=== PATIENT | female | born 1995 | race Caucasian/White ===

== ENCOUNTER → 2019-08-13 11:37 | Outpatient (CLI) | payer MEDICAID, SELFPAY ==
[2019-08-13 14:29] LABS: HCG,Quantitative 53750 mIU/ml (0-5.42)
== END ==
PROVIDERS: Visit Provider Nurse Practitioner Obstetrics & Gynecology
DX: Z32.01 Encounter for pregnancy test, result positive (principal)
CPT/HCPCS: 36415; 84702

== ENCOUNTER → 2019-09-16 10:38 | Outpatient (CLI) | payer MEDICAID, SELFPAY ==
--- NOTE | 2019-09-16 10:39 | US_ITS ---
PROCEDURE: US OB >= 14 WEEKS FETUS CLINICAL INDICATION: for dates COMPARISON: No exams were available for comparison FINDINGS: There is a single live intrauterine gestation in cephalic presentation. Cervix is closed and measures 3 cm transabdominal. Nicholls-rump length is 9.46 cm correlating to gestational age of 15 weeks 3 days. BPD 15 weeks 0 days, OFD 14 weeks 6 days, HC 14 weeks 6 days, AC 15 weeks 0 days, FL 14 weeks 5 days. Heart rate is 142 BPM. Average ultrasound age is 15 weeks 0 days IMPRESSION: Live IUP at 15 weeks 0 days. Cephalic position. This does not constitute an anatomy exam the the Estimated due date by Ultrasound is 03/09/2020 Dictated by: Nito Garvin MD 09/16/2019 12:33 Electronically signed by Nito Garvin MD in [place] 09/16/2019 12:33
== END ==
PROVIDERS: PCP Internal Medicine Adolescent Medicine; Visit Provider Nurse Practitioner Obstetrics & Gynecology
DX: Z34.90 Encounter for supervision of normal pregnancy, unspecified, unspecified trimester (principal)
CPT/HCPCS: 76805

== ENCOUNTER → 2019-10-29 10:16 | Outpatient (CLI) | payer MEDICAID, SELFPAY ==
--- NOTE | 2019-10-29 10:16 | US_ITS ---
PROCEDURE: US OB /MATERNAL DETAIL CLINICAL INDICATION: 20 week ultrasound Anatomy exam COMPARISON: US US OB >= 14 WEEKS FETUS from 09/16/2019 FINDINGS: There is a single live fetus which is in breech presentation. heart and body motion noted. Average ultrasound age is 20 weeks 4 days. The cervix is closed measuring 3.6 cm transabdominal. The placenta is posterior and grade 1. Complete survey performed and was unremarkable on the submitted images as in PACS. No discrete anomalies identified on survey imaging by technologist. Active fetus. Three-vessel cord with satisfactory umbilical cord insertion. 4- chamber heart noted. Survey of brain & ventricles Unremarkable. Face and neck survey unremarkable. Diaphragm and chest views unremarkable. Abdomen: Both kidneys noted and unremarkable. Stomach noted and satisfactory. Spine: Survey of the spine satisfactory with no anomalies identified nor imaged. Both arms and legs noted. Amniotic Fluid: Adequate. Maternal adnexa: No significant findings. Measurements: Average ultrasound age 20weeks 4days. Gestational Age 21weeks 1day Estimated due date by ultrasound age 0103/13/2020. Estimated weight 377g BPD = 20weeks 1day OFD = 21weeks 1day HC = 20weeks AC = 20weeks 6days FL = 21weeks 1day Growth Percentile= 27Percent% Heart Rate = 142bpm Cerebellum = 20weeks 5days Humerus = 21weeks 3days HC/AC is 1.12 CI is 0.73 FL/BPD is 0.75 FL/AC is 0.22 IMPRESSION: Live IUP 20 weeks 4 days which is in breech presentation. All parameters correlate with no obvious anomalies. Please see above for detail Dictated by: Nito Garvin MD 10/30/2019 06:38 Nito Garvin MD in [place] 10/30/2019 06:38
[2019-10-29 11:49] LABS: Basophils # 0.1 K/mm3 (0-0.2); Basophils % 0.3 % (0.1-2.0); Eosinophils # 0.1 K/mm3 (0.0-0.4); Eosinophils % 0.9 % (0.1-12.0); Hematocrit 36.3 % (37.0-47.0); Hemoglobin 12.6 g/dL (12.2-16.2); Lymphocytes # 4.2 K/mm3 (0.7-4.5); Mean Corpuscular HGB Conc 34.7 g/dL (31.8-35.4); Mean Corpuscular Hemoglobin 31.5 pg (27.0-31.2); Mean Corpuscular Volume 90.8 fl (81-99); Mean Platelet Volume 8.4 fl (7.4-10.4); Monocytes # 0.5 K/mm3 (0.1-1.0); Monocytes % 3.6 % (1.7-9.3); Neutrophils # 9.1 K/mm3 (1.8-7.8); Neutrophils % 65.2 % (37.0-80.0); Platelet Count 211 K/mm3 (142-424); Red Blood Count 3.99 M/mm3 (4.20-5.40); Red Cell Distribution Width 13.6 % (11.5-17.5); White Blood Count 13.9 K/mm3 (4.8-10.8)
[2019-10-30 13:03] LABS: HIV Screen 4th Generation wRfx Non Reactive (Non Reactive); Hepatitis B Surface Antigen Negative (Negative); Hepatitis C Antibody <0.1 s/co ratio (0.0-0.9); Rubella Antibodies, IgG 1.98 index (Immune >0.99)
[2019-11-14 09:47] LABS: Rapid Plasma Reagin Ab Titer Non Reactive
== END ==
PROVIDERS: PCP Internal Medicine Adolescent Medicine; Visit Provider Nurse Practitioner Obstetrics & Gynecology
DX: Z3A.20 20 weeks gestation of pregnancy (principal); Z34.90 Encounter for supervision of normal pregnancy, unspecified, unspecified trimester
CPT/HCPCS: 36415; 76811; 85025; 86592; 86703; 86762; 86850; 87340; 87380; G0432

== ENCOUNTER → 2019-10-29 11:25 | Outpatient (CLI) | payer MEDICAID, SELFPAY | PROVIDERS: Visit Provider Nurse Practitioner Obstetrics & Gynecology | DX: Z34.90 Encounter for supervision of normal pregnancy, unspecified, unspecified trimester (principal) | CPT/HCPCS: 36415; 85025; 86592; 86703; 86762; 86850; 87340; 87380; G0432 ==

== ENCOUNTER → 2019-12-05 07:58 | Outpatient (CLI) | payer MEDICAID, SELFPAY ==
[2019-12-05 08:45] LABS: Glucose,Fasting 126 mg/dl (74-100)
[2019-12-05 10:09] LABS: Glucose 1 Hour 225 mg/dL (74-100)
== END ==
PROVIDERS: Visit Provider Nurse Practitioner Obstetrics & Gynecology
DX: Z34.90 Encounter for supervision of normal pregnancy, unspecified, unspecified trimester (principal)
CPT/HCPCS: 36415; 82951

== ENCOUNTER → 2019-12-09 10:51 | Outpatient (CLI) | payer MEDICAID, SELFPAY ==
[2019-12-09 13:14] LABS: Glucose 1 Hour 166 mg/dL (74-100); Glucose,Fasting 108 mg/dl (74-100)
[2019-12-09 14:21] LABS: Glucose 2 Hour 127 mg/dL (74-100)
[2019-12-09 15:08] LABS: Glucose 3 Hour 114 mg/dL (74-100)
== END ==
PROVIDERS: Visit Provider Nurse Practitioner Obstetrics & Gynecology
DX: Z34.90 Encounter for supervision of normal pregnancy, unspecified, unspecified trimester (principal)
CPT/HCPCS: 36415; 82951

== ENCOUNTER → 2020-01-30 11:42 | Outpatient (CLI) | payer MEDICAID, SELFPAY ==
[2020-01-30 14:21] LABS: Coronavirus 19 IgG Antibody Negative (Negative); Coronavirus 19 IgM Antibody Negative (Negative)
== END ==
PROVIDERS: Visit Provider Nurse Practitioner Obstetrics & Gynecology
DX: Z03.818 Encounter for observation for suspected exposure to other biological agents ruled out (principal)
CPT/HCPCS: 36415; 86328

== ENCOUNTER → 2020-02-10 10:06 | Outpatient (CLI) | payer MEDICAID, SELFPAY ==
--- NOTE | 2020-02-10 10:07 | US_ITS ---
PROCEDURE: US OB BIOPHYSICAL PROFILE CLINICAL INDICATION: for position/ possible breech Large for gestational age TECHNIQUE: FINDINGS: The following parameters are obtained: Average ultrasound age is Average 35weeks 2days Estimated due date by ultrasound is 03/14/2020. Estimated weight is 2,633g. This is 40th percentile. The fetus is in breech presentation. Placenta is fundal and grade 2. BPD 34 weeks 6 days, OFD 37 weeks 5 days, HC 35 weeks 3 days, AC 35 weeks 2 days, FL 35 weeks 3 days. heart rate: 147bpm bpm. HC/AC: 1.01 Cephalic index: 0.77 FL/BPD: 0.8 FL/AC: 0.22 Amniotic fluid index: 10.6cm Qualitative AFV: 2 breathing movements: 2 Gross body movements: 2 Tone: 2 Biophysical profile score: 8 The cervix is closed and measures 3 cm IMPRESSION: Live IUP in breech presentation with an average ultrasound age of 35 weeks 2 days an estimated weight 2633 g which is 40th percentile. EMA of 10 cm. Please see above for detail. Dictated by: Nito Garvin MD 02/11/2020 12:54 Nito Garvin MD in [place] 02/11/2020 12:54
== END ==
PROVIDERS: PCP Internal Medicine Adolescent Medicine; Visit Provider Nurse Practitioner Obstetrics & Gynecology
DX: Z36.89 Encounter for other specified antenatal screening (principal)
CPT/HCPCS: 76811; 76819

== ENCOUNTER → 2020-02-18 17:04 | Outpatient (CLI) | payer MEDICAID, SELFPAY ==
[2020-02-18 17:17] LABS: Microscopic, Urine URINE MICROSCOPIC (MICROSCOPIC)
[2020-02-18 17:58] LABS: Appearance,Urine SL CLOUDY (Clear); Bilirubin,Urine Negative (Negative); Blood, Urine Negative (Negative); Color,Urine YELLOW (Yellow); Glucose,Urine (UA) Negative (Negative); Ketones,Urine Negative (Negative); Leukocyte Esterase,Urine Negative (Negative); Nitrate,Urine Negative (Negative); Protein,Urine Negative (Negative); Specific Gravity, Urine 1.025 (1.005-1.030); Urobilinogen,Urine 0.2 EU/dl (0.2)
[2020-02-18 18:21] LABS: Amorphous Sediment,Urine 1+ /lpf
== END ==
PROVIDERS: Visit Provider Nurse Practitioner Obstetrics & Gynecology
DX: Z34.90 Encounter for supervision of normal pregnancy, unspecified, unspecified trimester (principal)
CPT/HCPCS: 81001; 86403

== ENCOUNTER → 2020-02-25 17:32 | Outpatient (CLI) | payer MEDICAID, SELFPAY ==
[2020-02-25 17:34] LABS: Microscopic, Urine URINE MICROSCOPIC (MICROSCOPIC)
[2020-02-25 19:14] LABS: Appearance,Urine CLEAR (Clear); Bilirubin,Urine Negative (Negative); Blood, Urine Negative (Negative); Color,Urine YELLOW (Yellow); Glucose,Urine (UA) Negative (Negative); Ketones,Urine Negative (Negative); Leukocyte Esterase,Urine Negative (Negative); Nitrate,Urine Negative (Negative); PH,Urine 6.5 (5.0-8.5); Protein,Urine Negative (Negative); Urobilinogen,Urine 0.2 EU/dl (0.2)
[2020-02-25 20:10] LABS: Bacteria,Urine 1+ /lpf
== END ==
PROVIDERS: Visit Provider Nurse Practitioner Obstetrics & Gynecology
DX: Z34.90 Encounter for supervision of normal pregnancy, unspecified, unspecified trimester (principal)
CPT/HCPCS: 81001

== ENCOUNTER → 2020-03-07 09:57 | Outpatient (CLI) | payer MEDICAID, SELFPAY ==
[2020-03-07 10:24] LABS: Basophils # 0.1 K/mm3 (0-0.2); Basophils % 0.3 % (0.1-2.0); Eosinophils # 0.1 K/mm3 (0.0-0.4); Eosinophils % 0.8 % (0.1-12.0); Hematocrit 42.3 % (37.0-47.0); Hemoglobin 13.9 g/dL (12.2-16.2); Lymphocytes # 3.5 K/mm3 (0.7-4.5); Lymphocytes % 23.8 % (10-50); Mean Corpuscular HGB Conc 32.9 g/dL (31.8-35.4); Mean Corpuscular Hemoglobin 29.2 pg (27.0-31.2); Mean Corpuscular Volume 88.8 fl (81-99); Mean Platelet Volume 8.7 fl (7.4-10.4); Monocytes # 0.6 K/mm3 (0.1-1.0); Monocytes % 3.8 % (1.7-9.3); Neutrophils # 10.4 K/mm3 (1.8-7.8); Neutrophils % 71.2 % (37.0-80.0); Platelet Count 269 K/mm3 (142-424); Red Blood Count 4.77 M/mm3 (4.20-5.40); Red Cell Distribution Width 13.9 % (11.5-17.5); White Blood Count 14.6 K/mm3 (4.8-10.8)
[2020-03-07 10:27] LABS: Chloride 104 mmol/L (98-107); Potassium 3.8 mmoL/L (3.5-5.1); Sodium 134 mmol/L (136-145)
[2020-03-07 10:30] LABS: Anion Gap 11.8 mEq/L (5-15); Blood Urea Nitrogen 9 mg/dl (7-17); Calcium 9.5 mg/dl (8.4-10.2); Carbon Dioxide 22 mmol/L (22.0-30.0); Estimated Glomerular Filt Rate 123 ml/min (>60); GFR (African American) 149 ML/MIN (>60); Glucose 176 mg/dl (74-100)
[2020-03-07 10:44] LABS: Coronavirus 19 IgG Antibody Negative (Negative); Coronavirus 19 IgM Antibody Negative (Negative)
== END ==
PROVIDERS: Visit Provider Nurse Practitioner Obstetrics & Gynecology
DX: Z01.818 Encounter for other preprocedural examination (principal); Z03.818 Encounter for observation for suspected exposure to other biological agents ruled out
CPT/HCPCS: 36415; 80048; 85025; 86328

== ENCOUNTER 2020-03-09 05:09 | Inpatient (IN) | payer MEDICAID, SELFPAY ==
--- NOTE | 2020-03-03 13:44 | SUR.PREOP ---
contacted pt about labs on Sat 03/07 btwn 8-12 for COVID screening
[2020-03-09] VITALS (26 sets, daily range): BP systolic 102–168; BP diastolic 45–95; PULSE 69–109; RESP 12–28; TEMP 36.4–36.9; O2SAT 94–100; BMI 45.5
[2020-03-09 06:05] LABS: Basophils # 0.1 K/mm3 (0-0.2); Basophils % 0.3 % (0.1-2.0); Eosinophils # 0.1 K/mm3 (0.0-0.4); Eosinophils % 0.6 % (0.1-12.0); Hematocrit 43.6 % (37.0-47.0); Hemoglobin 14.4 g/dL (12.2-16.2); Lymphocytes # 4.8 K/mm3 (0.7-4.5); Lymphocytes % 23.2 % (10-50); Mean Corpuscular Hemoglobin 29.6 pg (27.0-31.2); Mean Corpuscular Volume 89.6 fl (81-99); Mean Platelet Volume 8.5 fl (7.4-10.4); Monocytes # 1.3 K/mm3 (0.1-1.0); Monocytes % 6.2 % (1.7-9.3); Neutrophils # 14.3 K/mm3 (1.8-7.8); Neutrophils % 69.6 % (37.0-80.0); Platelet Count 300 K/mm3 (142-424); Red Blood Count 4.87 M/mm3 (4.20-5.40)
[2020-03-09 06:06] LABS: White Blood Count 20.5 K/mm3 (4.8-10.8)
[2020-03-09 06:07] LABS: MANUAL DIFFERENTIAL MANUAL DIFFERENTIAL (MANUAL DIFF)
[2020-03-09 06:14] LABS: Chloride 106 mmol/L (98-107); Potassium 4.2 mmoL/L (3.5-5.1); Sodium 134 mmol/L (136-145)
[2020-03-09 06:17] LABS: Anion Gap 12.2 mEq/L (5-15); Blood Urea Nitrogen 11 mg/dl (7-17); Calcium 9.8 mg/dl (8.4-10.2); Carbon Dioxide 20 mmol/L (22.0-30.0); Creatinine Clearance Estimated 104 mL/min (50-200); Estimated Glomerular Filt Rate 123 ml/min (>60); GFR (African American) 149 ML/MIN (>60); Glucose 118 mg/dl (74-100); Lymphocytes % 18 % (10-50); Neutrophils % 79 % (42-76); Platelet Estimate Normal; RBC Morphology Normal; Total Cells Counted 100
--- NOTE | 2020-03-09 06:59 | P.PN_ITS ---
[facility] Anesthesia Checklist - Patient Identification Patient Identification: Arm Band - Structural Data Admitted From: Home Planned Operative Procedure/s: Primary C/S Consent for Planned Operative Procedure(s) Verified: Yes Verified Documents: Surgical Consent, History and Physical - NPO Status Verified Time NPO: 00:00 - Additional verifications Anesthesia Reactions: No - Airway Assessment C-Spine Mobility Assessed: Yes (mp2) TMJ Mobility Assessed: Yes Dentition: Good Dentition - Neurological Assessment Level of Consciousness: Awake, Alert - Anesthesia Plan Anesthesia Risk discussed: Yes Anesthesia Plan: Verified ASA Class: II Anesthesia Type: Spinal [facility] History I have reviewed the patient's past medical history: Yes *Have you ever received a pneumonia vaccine?: No *Have you received a flu vaccine this season?: No Anesthesia experience/problems:: nac Laterality Cases: Bilateral: Tonsillectomy, Other Other Surgeries: Yes: Other. No: Amputation: No Fractures: No - *Social History Smoking Status: Current every day smoker Alcohol Intake: never Alcohol Intake Frequency:: other Substance Use Type: denies use *Occupational Status:: unemployed *Travel in the last 8 weeks: None Family Hx:: No significant family history Para: 3
--- NOTE | 2020-03-09 08:58 | HMH.OPNOTE ---
Date of procedure: 03/09/20 Pre-op Diagnosis:: Term , breech presentation Post-op Diagnosis:: Term , breech presentation Procedure performed:: Primary lower segment transverse section Surgeon:: Scott Maldonado MD Copy Operator(s):: Dr. Wheeler PRESCHOOL TEACHER:: Rodrigo Amadou Anesthesia: GETTaniya Estimated blood loss (mL): 1,000 Clinical Note:: She is a 24-year-old 4 para 3 at 39 weeks gestational age. She has been followed throughout the and in the last month it was noted that she was breech. An ultrasound this morning confirmed that she was breech. After having discussed the risks and benefits we elected to perform a primary lower segment transverse section. Operative findings:: She delivered a liveborn male child at 8:17 AM on the morning of March 09, 2020. The baby had Apgars of 7 at 1 minute and 9 at 5 minutes. Ovaries and tubes appeared normal. Operative note:: She was taken to the operating room where spinal anesthesia was found be inadequate. We attempted to spinal anesthesia twice with good backflow of clear spinal fluid but despite this she continued to feel everything and was able to move her legs . We then elected to perform general anesthesia. She was prepped and draped in normal sterile fashion in the supine position with a leftward tilt. A Hall catheter was in the bladder. A Pfannenstiel skin incision was made with knife then carried through to the underlying layer of fascia with knife. The fascia was opened in the midline with knife and extended laterally using Morris scissors. Long Eddy clamps were applied to the superior aspect of the fascial incision which was tented up and the underlying rectus muscles dissected off using Morris scissors. The Long Eddy clamps were then applied to the inferior aspect of the fascial incision which in a similar fashion was tented up and the underlying rectus muscles dissected off using Morris scissors. The rectus muscles were then in the midline, the peritoneum identified, and entered sharply with Metzenbaum scissors. This incision was then extended superiorly and inferiorly with Morris scissors. We had good visualization of the bladder inferiorly. The bladder peritoneum was then opened in the midline and extended laterally using Metzenbaum scissors. A bladder flap was created digitally. Transverse incision was made through the uterine muscle to the amnion. This incision was then extended laterally using fingers traction. The amnion was entered sharply with knife. There was clear amniotic fluid. The 's breech was then delivered atraumatically. This was followed by the after coming shoulders and head Atraumatically. The oropharynx and nasopharynx were bulb suctioned. The infant was then handed off to Dr. Marques who assigned Apgars of 7 at 1 minute and 9 at 5 minutes. We then obtained cord blood as well as cord pH. Using gentle traction on the cord and countertraction on the fundus I was able to easily deliver the placenta intact. It had a normal three-vessel cord. The uterus was then cleared of clots and debris . The uterus was exteriorized from the abdominal cavity. There was some bleeding on the left side that was clamped with Yasmine clamps. There was also some bleeding on the right side. I elected to perform [id number] sutures on both sides first. The uterine incision was then closed using running 0 Vicryl suture in a locked fashion. A second layer of the same suture was used to imbricate the first layer. The bladder peritoneum was then closed using running 2-0 Vicryl suture in a locked fashion. The gutters and cul-de-sac were then cleared of clots and debris . Once again hemostasis was assured. The uterus was still quite boggy at the end of the case so we elected to place a B. Westbrook suture. Using a #1 Vicryl suture I placed a suture anteriorly and then went over the fundus of the uterus. I placed 2 bites posteriorly and then came back ov
[2020-03-09 09:01] LABS: Appearance,Urine CLEAR (Clear); Bilirubin,Urine Negative (Negative); Blood, Urine Negative (Negative); Color,Urine YELLOW (Yellow); Glucose,Urine (UA) Negative (Negative); Ketones,Urine Negative (Negative); Leukocyte Esterase,Urine 2+ (Negative); Microscopic, Urine URINE MICROSCOPIC (MICROSCOPIC); Nitrate,Urine Negative (Negative); Protein,Urine Negative (Negative); Specific Gravity, Urine 1.025 (1.005-1.030); Urobilinogen,Urine 0.2 EU/dl (0.2)
[2020-03-09 09:08] LABS: Bacteria,Urine 1+ /lpf
--- NOTE | 2020-03-09 09:08 | P.PN_ITS ---
[facility] Anesthesia Record Part I Intake, IV Amount: 2,000 Estimated blood loss (mL): 1,000 Urine output (mL): 200 Blood Products used (#): none Blood Pressure: 160/93 SaO2: 98 Pulse Rate: 92 Respiratory Rate: 20 Temperature: 97.5 F Patient is:: Drowsy, Nasal O2, Stable Stable to PACU at:: 09:06
[2020-03-09 09:13] LABS: Barbiturates Screen,Urine Negative ng/ml (<200)
[2020-03-09 09:14] LABS: Benzodiazepines Screen,Urine Negative ng/ml (<200)
[2020-03-09 09:15] LABS: Cannabinoid Screen,Urine Negative ng/ml (<50); Cocaine Screen,Urine Negative ng/ml (<300)
[2020-03-09 09:16] LABS: Methadone Screen,Urine Negative ng/ml (<300)
[2020-03-09 09:17] LABS: Opiate Screen,Urine Negative ng/ml (<300); Phencyclidine Screen,Urine Negative ng/ml (<25)
[2020-03-09 09:20] LABS: Amphetamine/Metha Screen,Urine Negative ng/ml (<1000)
--- NOTE | 2020-03-09 13:50 | HMH.ANESII ---
[facility] Anesthesia Record Part II Discharge Time: 09:36 Destination: Obstetric Gynecology Dept PACU nurse assessment reviewed?: Yes Patient Condition:: Good Anesthesia Complications:: None Swallowing reflex intact?: Yes Cyanosis?: No Blood Pressure: 140/66 Pulse Rate: 77 Temperature: 97.9 F Mental Status: Alert & Oriented Pain level:: 5 Nausea and/or vomitting:: None Intake, IV Amount: 50
[2020-03-09 16:06] LABS: Hematocrit 33.5 % (37.0-47.0)
[2020-03-09 16:07] LABS: Hemoglobin 11.4 g/dL (12.2-16.2)
--- NOTE | 2020-03-09 17:34 | HMH.OBAPHP ---
OB - H&P: HPI Antepartum - History of Present Illness Chief complaint: Breech presentation History of present illness: She is a 24-year-old 4 para 3 at 39 weeks gestational age. She has had 3 previous vaginal deliveries but this time the baby is breech. It was confirmed at the time of ultrasound this morning. As result of that she is admitted for primary lower segment transverse section. - History of Present Criteria for establishing EDC:: LMP confirmed by 1st trimester US care: good care Ultrasounds: normal 1st trimester US, normal mid trimester US Obstetrical complications: none Medical complications: none - Labs Blood type: A (+) positive Rubella: immune RPR/VDRL: nonreactive GBS status: negative HBsAG: negative [facility] History I have reviewed the patient's past medical history: Yes *Have you ever received a pneumonia vaccine?: No *Have you received a flu vaccine this season?: No Anesthesia experience/problems:: nac Laterality Cases: Bilateral: Tonsillectomy, Other Other Surgeries: Yes: Other. No: Amputation: No Fractures: No - *Social History Smoking Status: Current every day smoker Alcohol Intake: never Alcohol Intake Frequency:: other Substance Use Type: denies use *Occupational Status:: unemployed *Travel in the last 8 weeks: None Family Hx:: No significant family history Para: 3 Review of Systems - Review of Systems Review of systems:: pertinent systems reviewed and negative unless documented below Meds Home Medications Medication Instructions Recorded Confirmed Type prenat.vits,rosalee,ksv-fuwd-diott 1 tab PO DAILY 10/07/19 03/09/20 History ondansetron 4 mg disintegrating 4 mg PO Q6H PRN #30 tab 10/29/19 03/09/20 Rx tablet Docosahexaenoic Acid [ DHA] 200 mg PO DAILY 03/09/20 03/09/20 History Ferrous Sulfate 325 mg PO DAILY 03/09/20 03/09/20 History Triamcinolone Acetonide [Kenalog 1 applic TOPICAL TIDP PRN 03/09/20 03/09/20 History 0.1% cream 80gm tube] Allergies Allergy/AdvReac Type Severity Reaction Status Date / Time penicillin G [PENICILLIN G] Allergy Unknown RASH/HIVES Verified 02/25/20 09:27 OB - H&P: Exam - Physical Exam Vital signs: Temp Pulse Resp BP Pulse Ox 98.0 F 92 H 16 106/47 L 98 03/09/20 16:15 03/09/20 16:15 03/09/20 16:15 03/09/20 16:15 03/09/20 16:15 - Constitutional no acute distress - Routine HEENT Exam Head: Present: normocephalic Eye: Present: EOMI, PERRL ENT: Present: mucous membranes moist - Routine Neck Exam Present: supple, full ROM - Routine Respiratory Exam Absent: accessory muscle use (good air entry bilaterally), respiratory distress, wheezes, crackles - Routine Cardiovascular Exam Present: RRR. Absent: murmur - Routine Abdominal Exam Present: soft, normoactive bowel sounds. Absent: tenderness, distended, guarding - Routine Rectal Exam Patient deferred: visual exam, digital exam - Routine Exam Patient deferred: external exam, groin exam, perineal exam - Routine Extremities Exam Present: full ROM. Absent: cyanosis, edema - Routine Skin Exam Present: intact. Absent: cyanosis - Routine Neurological Exam Present: alert, oriented X3 - Routine Psychiatric Exam Present: normal affect OB - Results - Labs Labs: Short CBC 03/09/20 03/09/20 Range/Units 05:50 15:53 WBC 20.5 H* D (4.8-10.8) K/mm3 Hgb 14.4 11.4 L D (12.2-16.2) g/dL Hct 43.6 33.5 L (37.0-47.0) % Plt Count 300 (142-424) K/mm3 BMP 03/09/20 05:50 Sodium 134 L Potassium 4.2 Chloride 106 Carbon Dioxide 20 L BUN 11 Creatinine 0.60 Glucose 118 H Calcium 9.8 Urine 03/09/20 Range/Units 05:35 Urine Color Yellow (Yellow) Urine Appearance Clear (Clear) Urine pH 6.0 (5.0-8.5) Ur Specific [place] 1.025 (1.005-1.030) Urine Protein Negative (Negative) Urine Glucose (UA) Negative (Negative) OB - A
[2020-03-10 04:00] VITALS: BP 114/56; PULSE 80; RESP 16; TEMP 36.8; O2SAT 97
[2020-03-10 07:51] LABS: Basophils % 0.1 % (0.1-2.0); Eosinophils % 0.3 % (0.1-12.0); Hematocrit 27.8 % (37.0-47.0); Lymphocytes # 2.2 K/mm3 (0.7-4.5); Mean Corpuscular Hemoglobin 30.9 pg (27.0-31.2); Mean Corpuscular Volume 90.7 fl (81-99); Mean Platelet Volume 8.1 fl (7.4-10.4); Monocytes # 0.8 K/mm3 (0.1-1.0); Monocytes % 5.4 % (1.7-9.3); Neutrophils # 11.5 K/mm3 (1.8-7.8); Neutrophils % 79.2 % (37.0-80.0); Platelet Count 218 K/mm3 (142-424); Red Blood Count 3.07 M/mm3 (4.20-5.40); Red Cell Distribution Width 14.1 % (11.5-17.5); White Blood Count 14.5 K/mm3 (4.8-10.8)
[2020-03-10 07:52] LABS: Hemoglobin 9.5 g/dL (12.2-16.2)
--- NOTE | 2020-03-10 08:19 | P.PN_ITS ---
Internal Medicine - PN: Subj *Date: 03/10/20 *Time: 08:19 Interval history: She is doing well this morning. She is 1 day post . Her pain is well controlled. Her incision is clean and dry. Her lochia is normal. Exam Vital signs and Labs for Last 24 Hours: Temp Pulse Resp BP Pulse Ox 98.2 F 80 16 114/56 L 97 03/10/20 04:00 03/10/20 04:00 03/10/20 04:00 03/10/20 04:00 03/10/20 04:00 Laboratory Results - last 24 hr 03/09/20 05:35: Urine Color Yellow, Urine Appearance Clear, Urine pH 6.0, Ur Specific [place] 1.025, Urine Protein Negative, Urine Glucose (UA) Negative, Urine Ketones Negative, Urine Blood Negative, Urine Nitrate Negative, Urine Bilirubin Negative, Urine Urobilinogen 0.2, Ur Leukocyte Esterase 2+ A, Urine WBC 10-20, Ur Squamous Epith Cells 3-5, Urine Bacteria 1+ 03/09/20 05:35: Urine Opiates Screen Negative, Urine Methadone Screen Negative, Ur Barbituates Screen Negative, Ur Phencyclidine Scrn Negative, Ur Amphetamines Screen Negative, U Benzodiazepines Scrn Negative, Urine Cocaine Screen Negative, U Marijuana (THC) Screen Negative 03/09/20 08:21: Cord ABG pH 7.30 L 03/09/20 15:53: Hgb 11.4 L D, Hct 33.5 L 03/10/20 07:03: WBC 14.5 H D, RBC 3.07 L D, Hgb 9.5 L D, Hct 27.8 L, MCV 90.7, MCH 30.9, MCHC 34.0, RDW 14.1, Plt Count 218 D, MPV 8.1, Neut % (Auto) 79.2, Lymph % (Auto) 15.0, [place] % (Auto) 5.4, Eos % (Auto) 0.3, Baso % (Auto) 0.1, Neut # (Auto) 11.5 H, Lymph # (Auto) 2.2, [place] # (Auto) 0.8, Eos # (Auto) 0.0, Baso # (Auto) 0.0 I & O for Last 24 hours: Intake & Output 12/26/03/08/20 03/09/20 03/10/20 11:59 11:59 11:59 11:59 Intake Total 1999 50 / 50 Output Total 200 / 200 Balance 1799 50 / 50 Weight 233 lb - Constitutional no acute distress - *Routine HEENT Exam Head: Present: normocephalic Eye: Present: EOMI, PERRL ENT: Present: mucous membranes moist Assessment and Plan (1) Breech presentation at Status: Acute Category: Medical Code(s): O32.1XX0 - Maternal care for breech presentation, not applicable or unspecified (2) Delivery by section of full-term infant Status: Acute Category: Medical Code(s): O82 - Encounter for delivery without indication - Assessment and plan all Dx Assessment and Plan for all problems:: She is doing well this morning. We will plan to send her home in 48 hours.
--- NOTE | 2020-03-10 12:58 | HMH.PHAVTE ---
[facility] Pharmacy VTE Monitoring - Patient Demographics Admission date: 03/09/20 Report Date: 03/10/20 Time: 12:58 Allergies/Adverse Reactions: Patient Allergies penicillin G [PENICILLIN G] Allergy (Unknown, Verified 02/25/20 09:27) RASH/HIVES Height: 1.52 m Weight: 105.687 kg Patient Problems: Current Active Problems Breech presentation at (Acute) Delivery by section of full-term (Acute) - VTE Risk Labs: VTE Related Lab Results Hgb 9.5 g/dL (12.2-16.2) L D 03/10/20 07:03 Hct 27.8 % (37.0-47.0) L 03/10/20 07:03 Plt Count 218 K/mm3 (142-424) D 03/10/20 07:03 BUN 11 mg/dl (7-17) 03/09/20 05:50 Creatinine 0.60 mg/dl (0.52-1.04) 03/09/20 05:50 Estimated Creat Clear 104 mL/min (50-200) 03/09/20 05:50 - Prophylaxis VTE Prophylaxis Ordered?: Yes Types of VTE Prophylaxis: IPCS Thigh High Location of Applied Device: Bilateral Lower Extremeties, Not Applicable
[2020-03-10 20:00] VITALS: BP 108/65; PULSE 88; RESP 18; TEMP 36.9; O2SAT 97
[2020-03-11 04:39] VITALS: BP 114/68; PULSE 78; RESP 17; TEMP 36.8; O2SAT 97
--- NOTE | 2020-03-11 10:44 | HMH.ACPN2 ---
Internal Medicine - PN: Subj *Date: 03/11/20 *Time: 10:44 Interval history: POD #2 primary c section for breech presentation No unusual complaints Tolerating regular diet Ambulating and voiding without difficulty Asymptomatic with postop anemia Exam Vital signs and Labs for Last 24 Hours: Temp Pulse Resp BP Pulse Ox 98.3 F 78 17 114/68 97 03/11/20 04:39 03/11/20 04:39 03/11/20 04:39 03/11/20 04:39 03/11/20 04:39 I & O for Last 24 hours: Intake & Output 03/08/20 03/09/20 03/10/20 03/11/20 11:59 11:59 11:59 11:59 Intake Total 1999 / 1999 50 / 50 Output Total 200 / 200 Balance 1800 / 1800 50 / 50 Weight 233 lb Microbiology Reports for the Last 24 Hours: Microbiology 03/09/20 05:35 Urine,Clean Catch Urine Culture - Final NO GROWTH AFTER 48 HOURS Narrative: CONSTITUTIONAL: no acute distress HEENT: mucous membranes moist PULMONARY: breathing unlabored without audible wheezes CV: no tachycardia or visible JVD; normal LE peripheral pulses ABD: soft, ND; appropriately tender but no rebound/guarding : fundus firm at/below umbilicus SKIN: incision well approximated with no drainage, erythema or induration EXT: 1+ edema LEs NEURO: alert/oriented, no altered mental status PSYCH: appropriate mood and demeanor without anxiety/depression Assessment and Plan (1) Breech presentation at Status: Acute Category: Medical Code(s): O32.1XX0 - Maternal care for breech presentation, not applicable or unspecified (2) Delivery by section of full-term Status: Acute Category: Medical Code(s): O82 - Encounter for delivery without indication (3) Anemia associated with acute blood loss Status: Acute Category: Medical Code(s): D62 - Acute posthemorrhagic anemia - Assessment and plan all Dx Assessment and Plan for all problems:: Routine postop/ care FeSO4 for anemia Plan discharge home tomorrow
[2020-03-11 20:06] VITALS: BP 130/66; PULSE 85; RESP 18; TEMP 36.9; O2SAT 98
[2020-03-12 00:13] VITALS: BP 120/61; PULSE 63; RESP 18; TEMP 36.6; O2SAT 97
[2020-03-12 05:13] VITALS: BP 137/82; PULSE 73; RESP 18; TEMP 36.8; O2SAT 97
[2020-03-12 08:00] VITALS: BP 114/76; PULSE 81; RESP 18; TEMP 36.7; O2SAT 97
--- NOTE | 2020-03-12 12:41 | HMH.DCSUM ---
General - General Admission date:: 03/09/20 Discharge date: 03/12/20 Hospital Course Hospital Course: Primary cs for breech presentation postop course uneventful tolerating regular diet, ambultating and voiding without difficulty discharged home on POD #3 Rhogam Administration: Not Indicated Objective Vital signs: Temp Pulse Resp BP Pulse Ox 98.1 F 81 18 114/76 97 03/12/20 08:00 03/12/20 08:00 03/12/20 08:00 03/12/20 08:00 03/12/20 08:00 Narrative: CONSTITUTIONAL: no acute distress HEENT: mucous membranes moist PULMONARY: breathing unlabored without audible wheezes CV: no tachycardia or visible JVD; normal LE peripheral pulses ABD: soft, ND; appropriately tender but no rebound/guarding : fundus firm at/below umbilicus SKIN: incision well approximated with no drainage, erythema or induration EXT: 1+ edema LEs NEURO: alert/oriented, no altered mental status PSYCH: appropriate mood and demeanor without anxiety/depression DS: Diagnosis - Discharge Diagnosis (1) Breech presentation at Status: Acute (2) Delivery by section of full-term infant Status: Acute (3) Anemia associated with acute blood loss Status: Acute Discharge Plan - Patient Discharge Instructions ACTIVITY: Continue current activity DIET: regular diet Additional Instructions: No strenuous activity, no heavy lifting, nothing in the Vagina for 6 weeks! Patient Instructions: Depression, Hemorrhage, DI for , DI for Pre-eclampsia, [facility] Post Discharge Instructions, Preventing the Spread of Coronavirus Discharge Instructions - Follow up Plan Follow up with: Scott Maldonado MD [Staff Physician] - 03/23/20 11:00 am Disposition: Home, Self-Group Home Medications: Home Medications Medication Instructions Recorded Confirmed Type prenat.vits,rosalee,qvt-xdtp-encza 1 tab PO DAILY 10/07/19 03/09/20 History ondansetron 4 mg disintegrating 4 mg PO Q6H PRN #30 tab 10/29/19 03/09/20 Rx tablet Docosahexaenoic Acid [ DHA] 200 mg PO DAILY 03/09/20 03/09/20 History Ferrous Sulfate 325 mg PO DAILY 03/09/20 03/09/20 History Triamcinolone Acetonide [Kenalog 1 applic TOPICAL TIDP PRN 03/09/20 03/09/20 History 0.1% cream 80gm tube] Ibuprofen [Motrin 400mg 800 mg PO Q6HP PRN #40 tab 03/12/20 Rx tablet] Prescriptions/Medication Reconciliation: New Acetaminophen [Acetaminophen 325mg tab] 650 mg PO Q4HP PRN tablet PRN Reason: Mild Pain Ibuprofen [Motrin 400mg tablet] 800 mg PO Q6HP PRN #40 tab PRN Reason: Mild To Moderate Pain Continued prenat.vits,rosalee,[id number]-yxaw-xkbga 1 tab PO DAILY ondansetron 4 mg disintegrating tablet 4 mg PO Q6H PRN #30 tab PRN Reason: nausea and vomiting Docosahexaenoic Acid [ DHA] 200 mg PO DAILY Triamcinolone Acetonide [Kenalog 0.1% cream 80gm tube] 1 applic TOPICAL TIDP PRN PRN Reason: Rash Ferrous Sulfate 325 mg PO DAILY - Problem Reconciliation Problems Reviewed?: Yes
== END 2020-03-12 13:35 | disposition home or self-care (01) | DRG 788 ==
PROVIDERS: Admitting Provider Nurse Practitioner Obstetrics & Gynecology; PCP Internal Medicine Adolescent Medicine; Visit Provider Nurse Practitioner Obstetrics & Gynecology
PROC: 10D00Z1 Extraction of Products of Conception, Low, Open Approach (ICD-10-PCS; CPT 59514; principal; 2020-03-09 07:30)
DX: O64.1XX0 Obstructed labor due to breech presentation, not applicable or unspecified (principal); Z3A.39 39 weeks gestation of pregnancy; Z37.0 Single live birth
CPT/HCPCS: 59514; 36415; 59025; 80048; 80305; 81001; 82800; 85007; 85014; 85018; 85025; 86328; 86850; 87086; 90686; 94761; 96374; J0330; S0030

== ENCOUNTER 2020-08-17 20:46 | Emergency (ER) | payer MEDICAID, SELFPAY ==
[2020-08-17 21:00] VITALS: BP 136/90; PULSE 94; RESP 19; TEMP 37; O2SAT 98; BMI 31.7
[2020-08-17 21:04] VITALS: BP 136/90; PULSE 94; RESP 19; TEMP 37
--- NOTE | 2020-08-17 21:08 | HMH.EDUTC ---
[facility] [place] Disposition Clinical Impression: Sore throat (viral), Exposure to COVID-19 virus Disposition: Home, Self-Care Condition on Discharge: Good Instructions: DI for COVID-19 (Suspected or Confirmed ), Coronavirus Disease 2019, Preventing the Spread of Coronavirus Discharge Instructions Additional Instructions: *Monitor Temp, Over the counter Motrin or Tylenol as directed/as needed Tylenol every 4 hours and Motrin every 6 hours (as long as your family doctor has told you that you can take it) for fever or pain. and straight to ER if unable to lower temp less than 101.0 after medication given *Warm salt water gargles may help to soothe the throat *Throat Lozenges *Warm fluids like tea with honey may help to soothe the throat *Sleep elevated *Humidifier/Vaporizer Your throat swab was sent for culture. Those results are typically sent to your primary care. Be sure to follow up in 2-3 days with your family doctor/primary care physician if no improvement so they can review those result and treat if necessary. If you don?t have a primary care doctor, I recommend you get one but in the mean time, you will have to return to a walk in clinic Follow up IMMEDIATELY for new or worsening symptoms or no Noticeable improvement over the next 48-72 hours. 911 for difficulty breathing or swallowing You were tested for today for COVID19 your test result should be back in the next 24-48 hours, you may call to the [facility] to see if your test results are back in the next 48 hours [phone] [facility] hours are 9am-9pm You was given a handout with instructions for Self Quarantine and Self isolation for while you wait on test results and what to do if they are positive If you are positive the Health Dept will be contacting you also Referrals: Rodrigo Acevedo MD [Primary Care Provider] - As needed Time of Disposition: 21:13 Medical Decision Making - Iglesia Inquiry Pt receiving controlled substance: No Iglesia was queried for this patient: No Vital Signs: 08/17/20 21:00 08/17/20 21:04 Temperature 98.6 F 98.6 F Temperature Source Oral Pulse Rate 94 H Pulse Rate [Right] 94 H Respiratory Rate 19 19 Blood Pressure 136/90 Blood Pressure [Right Arm] 136/90 Blood Pressure Mean [Right Arm] 105 Blood Pressure Source [Right Arm] Automatic Cuff Blood Pressure Position [Right Arm] Sitting 02 Sat by Pulse Oximetry 98 - Lab Data Lab results reviewed: Yes: I reviewed the patient's lab results. Orders (Tests/Meds): ORDERS Category Date Time Status Covid-19 Nasal PCR ([facility]) Routine Lab 08/17/20 20:47 Ordered [facility] [place] HPI - General Stated complaint: COVID TEST Time Seen by Provider: 08/17/20 21:08 Mode of Arrival: Ambulatory Source of Information: Patient Limitations: No Limitations Description of Symptoms (Recalled from Triage Doc. by RN): pt wants a covid test for exposure. pt also c/o a sore throat. HEENT Symptoms (Recalled from RN notes): Yes (sore throat) Resp Symptoms (Recalled from RN notes): No Skin Symptoms (Recalled from RN notes): No MS Symptoms (Recalled from RN notes): No Functional Status (Recalled from RN notes): na - History of Present Illness Provider Complaint: Patient states that she was recently around someone that tested positive for COVID States that she was around them over the weekend and they tested positive today State that she has been having sore throat today so she came in wanting to get tested - Related Data Home Medications Medication Instructions Recorded Confirmed prenat.vits,rosalee,lfb-rwrr-moogl 1 tab PO DAILY 10/07/19 04/20/20 Ferrous Sulfate 325 mg PO DAILY 03/09/20 04/20/20 Previous Rx's Medication Instructions Recorded fluticasone propionate 50 1 spray INTRANASAL DAILY #16 g 04/20/20 mcg/actuation nasal spray,suspension loratadine 10 mg tablet 10 mg PO DAILY #30 tab 04/20/20 norgestimate 0.25 mg-ethinyl 1 tab PO DAILY #28 tab 04/20/20 estradiol 35 mcg tablet Allergies
[2020-08-17 21:11] LABS: UTC Strep Screen (Rapid) Negative (Negative)
--- NOTE | 2020-08-18 09:59 | PC.NURSE ---
PT NOTIFIED OF POSITIVE COVID RESULTS
== END 2020-08-17 21:23 | disposition home or self-care (01) ==
PROVIDERS: Emergency Provider Nurse Practitioner; PCP Internal Medicine Adolescent Medicine
DX: U07.1 COVID-19 (principal)
CPT/HCPCS: 87880; 99202; G0463; U0003

== ENCOUNTER → 2022-04-25 14:06 | Outpatient (CLI) | payer MEDICAID, SELFPAY ==
[2022-04-25 17:50] LABS: HCG,Quantitative 39286 mIU/ml (0-5.42)
== END ==
PROVIDERS: PCP Internal Medicine Adolescent Medicine; Visit Provider Nurse Practitioner Obstetrics & Gynecology
DX: Z34.90 Encounter for supervision of normal pregnancy, unspecified, unspecified trimester (principal); N92.6 Irregular menstruation, unspecified
CPT/HCPCS: 36415; 84144; 84702

== ENCOUNTER → 2022-05-09 23:49 | Outpatient (CLI) | payer MEDICAID, SELFPAY | PROVIDERS: PCP Internal Medicine Adolescent Medicine; Visit Provider Nurse Practitioner Obstetrics & Gynecology | DX: Z34.90 Encounter for supervision of normal pregnancy, unspecified, unspecified trimester (principal) | CPT/HCPCS: 87086 ==

== ENCOUNTER → 2022-06-15 14:00 | Outpatient (CLI) | payer MEDICAID, SELFPAY ==
[2022-06-15 14:52] LABS: Basophils # 0.1 K/mm3 (0-0.2); Basophils % 0.6 % (0.1-2.0); Eosinophils # 0.2 K/mm3 (0.0-0.4); Hematocrit 39.7 % (37.0-47.0); Hemoglobin 13.2 g/dL (12.2-16.2); Lymphocytes # 3.1 K/mm3 (0.7-4.5); Mean Corpuscular HGB Conc 33.3 g/dL (31.8-35.4); Mean Corpuscular Hemoglobin 29.7 pg (27.0-31.2); Mean Corpuscular Volume 89.3 fl (81-99); Mean Platelet Volume 8.3 fl (7.4-10.4); Monocytes # 0.5 K/mm3 (0.1-1.0); Monocytes % 4.5 % (1.7-9.3); Neutrophils # 7.6 K/mm3 (1.8-7.8); Neutrophils % 65.8 % (37.0-80.0); Platelet Count 253 K/mm3 (142-424); Red Blood Count 4.44 M/mm3 (4.20-5.40); Red Cell Distribution Width 13.4 % (11.5-17.5); White Blood Count 11.6 K/mm3 (4.8-10.8)
[2022-06-17 10:11] LABS: HIV Screen 4th Generation wRfx Non Reactive (Non Reactive); Rubella Antibodies, IgG 2.42 index (Immune >0.99)
[2022-06-17 10:12] LABS: Rapid Plasma Reagin Ab Titer Non Reactive (NonRea<1:1)
[2022-06-18 17:25] LABS: Hepatitis B Surface Antigen Negative; Hepatitis C Antibody Non Reactive
== END ==
PROVIDERS: Nurse Practitioner Obstetrics & Gynecology; PCP Internal Medicine Adolescent Medicine; Visit Provider Obstetrics & Gynecology
DX: Z34.90 Encounter for supervision of normal pregnancy, unspecified, unspecified trimester (principal)
CPT/HCPCS: 36415; 85025; 86593; 86703; 86762; 86850; 87340; 87380; G0432

== ENCOUNTER → 2022-08-30 10:33 | Outpatient (CLI) | payer MEDICAID, SELFPAY ==
[2022-08-30 10:56] LABS: Basophils # 0.1 K/mm3 (0-0.2); Basophils % 0.3 % (0.1-2.0); Eosinophils # 0.1 K/mm3 (0.0-0.4); Eosinophils % 0.8 % (0.1-12.0); Hematocrit 36.3 % (37.0-47.0); Hemoglobin 12.3 g/dL (12.2-16.2); Lymphocytes # 3.6 K/mm3 (0.7-4.5); Lymphocytes % 25.3 % (10-50); Mean Corpuscular HGB Conc 33.9 g/dL (31.8-35.4); Mean Corpuscular Hemoglobin 29.6 pg (27.0-31.2); Mean Corpuscular Volume 87.3 fl (81-99); Mean Platelet Volume 8.5 fl (7.4-10.4); Monocytes # 0.8 K/mm3 (0.1-1.0); Monocytes % 5.5 % (1.7-9.3); Neutrophils # 9.6 K/mm3 (1.8-7.8); Neutrophils % 68.1 % (37.0-80.0); Platelet Count 251 K/mm3 (142-424); Red Blood Count 4.16 M/mm3 (4.20-5.40); Red Cell Distribution Width 13.7 % (11.5-17.5)
[2022-08-30 11:01] LABS: Glucose,Fasting 111 mg/dl (74-100)
[2022-08-30 12:30] LABS: Glucose 1 Hour 201 mg/dL (74-100)
== END ==
PROVIDERS: PCP Internal Medicine Adolescent Medicine; Visit Provider Obstetrics & Gynecology
DX: O99.212 Obesity complicating pregnancy, second trimester (principal); Z3A.25 25 weeks gestation of pregnancy
CPT/HCPCS: 36415; 82951; 85025

== ENCOUNTER → 2022-09-07 14:04 | Outpatient (CLI) | payer MEDICAID, SELFPAY ==
--- NOTE | 2022-09-07 14:04 | US_ITS ---
PROCEDURE: US OB FOLLOW UP CLINICAL INDICATION: polyhydramnios/ EMA COMPARISON: There are no ultrasounds to compare. FINDINGS: The following parameters are obtained: From her last menstrual period she is 26weeks 3days Viable fetus in the breech presentation with an anterior placenta grade 1 heart rate: 130bpm bpm. BPD: 31weeks 3days OFD: 28weeks HC: 29weeks 1day AC: 27weeks 4days FL: 25weeks 6days HC/AC: 1.15 Cephalic index: 0.86 FL/BPD: 0.6 FL/AC: 0.2 Amniotic fluid index: 17.45cm The femur length is 25weeks 6days No obvious anomalies evident. profile seen, stomach, bladder, kidneys, four chamber heart appear normal. Three-vessel cord appears normal. There appears to be excess fluid around the brain. THE NASION IS NOT VISUALIZED. IMPRESSION: 1. There is a single live fetus present in breech presentation. Placenta anterior grade 1. 2. Average ultrasound age is 28weeks 4days with an estimated weight 2lb 5.24oz which is 75 percentile. 3. The fetus is approximately 2 weeks ahead on its growth according to the established due date. 4. The amniotic fluid is considered normal. The EMA is 17.45 cm. 5. THE NASION IS NOT VISUALIZED. 6. THERE IS EXCESS FLUID AROUND THE BRAIN. THIS COULD BE CONSISTENT WITH HYDROCEPHALUS. THE BPD IS AT LEAST 5 WEEKS AHEAD. MATERNAL MEDICINE IS INVOLVED WITH THE PATIENT'S CARE. PHYSICIAN NOTIFIED OF THE RESULTS. Dictated by: Scott Maldonado MD 09/07/2022 16:16 Scott Maldonado MD in [place] 09/07/2022 16:16
== END ==
PROVIDERS: PCP Internal Medicine Adolescent Medicine; Visit Provider Obstetrics & Gynecology
DX: O40.2XX0 Polyhydramnios, second trimester, not applicable or unspecified (principal); Z3A.26 26 weeks gestation of pregnancy
CPT/HCPCS: 76816

== ENCOUNTER → 2022-09-21 14:53 | Outpatient (CLI) | payer MEDICAID, SELFPAY ==
--- NOTE | 2022-09-21 14:53 | US_ITS ---
PROCEDURE: US OB FOLLOW UP CLINICAL INDICATION: Trisomy 21 COMPARISON: US US OB FOLLOW UP from 09/07/2022 FINDINGS: The following parameters are obtained: From her last established due date she is 28weeks 3days Viable fetus in the breech presentation with anterior placenta grade 1. There are several placental lakes. heart rate: 132bpm bpm. BPD: 39weeks 1day OFD: 26weeks 1day HC: 31weeks 1day AC: 30weeks 6days FL: 28weeks 4days HC/AC: 1.06 Cephalic index: 1.14 FL/BPD: 0.56 FL/AC: 0.2 Amniotic fluid index: 14.15cm The femur length is 28weeks 4days Cervix 3.3 cm in length stomach, bladder, kidneys, four chamber heart appear normal. hydrocephalus visualized. Three-vessel cord visualized. IMPRESSION: 1. Viable fetus in the breech presentation with an anterior placenta grade 1. 2. The amniotic fluid index is 14.15 cm. 3. Fetus continues to have hydrocephalus. Dictated by: Scott Maldonado MD 09/21/2022 20:03 Scott Maldonado MD in [facility] 09/21/2022 20:03
== END ==
PROVIDERS: PCP Internal Medicine Adolescent Medicine; Visit Provider Obstetrics & Gynecology
DX: O28.5 Abnormal chromosomal and genetic finding on antenatal screening of mother (principal); Q90.9 Down syndrome, unspecified; Z34.93 Encounter for supervision of normal pregnancy, unspecified, third trimester; Z3A.28 28 weeks gestation of pregnancy
CPT/HCPCS: 76816

== ENCOUNTER → 2022-10-05 13:45 | Outpatient (CLI) | payer MEDICAID, SELFPAY ==
--- NOTE | 2022-10-05 13:45 | US_ITS ---
PROCEDURE: US OB BIOPHYSICAL PROFILE CLINICAL INDICATION: EMA/ History of polyhydramnios affecting COMPARISON: Ultrasound 09/21/2022 FINDINGS: From her established due date she is 30weeks 3days. The following parameters are obtained: Viable fetus in the breech presentation with an anterior placenta grade 1. Average ultrasound age is 33weeks 2days. Estimated due date by ultrasound is 11/21/2022. Estimated weight is 4lb 8.1oz. Greater than 97percentile. heart rate: 125bpm bpm. Cervical length 3.5 cm BPD: 35 weeks 5days OFD: 31weeks 5days HC: 33 weeks 2 days AC: 33 weeks 3 days FL: 30 weeks 5 days HC/AC: 1.02 Cephalic index: 0.86 FL/BPD: 0.67 FL/AC: 0.2 Amniotic fluid index: 16.13cm Qualitative AFV: 2 breathing movements: 0 Gross body movements: 2 Tone: 2 Biophysical profile score: 6 Limited anatomical scan: Stomach not seen today. four-chamber heart appears normal, three-vessel cord appears normal. Marked hydrocephalus persists IMPRESSION: 1. Viable fetus in the breech presentation with an anterior placenta grade 1. 2. The fluid is within normal limits. 3. There continues to be marked hydrocephalus with the baby's head circumference currently 3 weeks ahead. 4. The abdominal circumference is 3 weeks ahead. 5. stomach is not seen today. 6. Biophysical profile 08/18 with no breathing movement seen today. Fetus is active. 7. Physician was notified. Dictated by: Scott Maldonado MD 10/05/2022 17:00 Scott Maldonado MD in [place] 10/05/2022 17:00
== END ==
PROVIDERS: PCP Internal Medicine Adolescent Medicine; Visit Provider Obstetrics & Gynecology
DX: O40.3XX0 Polyhydramnios, third trimester, not applicable or unspecified (principal); Z3A.30 30 weeks gestation of pregnancy
CPT/HCPCS: 76816; 76819

== ENCOUNTER 2022-11-04 12:01 | Outpatient (CLI) | payer MEDICAID, SELFPAY ==
[2022-11-04 12:17] VITALS: BMI 49.1
--- NOTE | 2022-11-04 12:41 | US_ITS ---
PROCEDURE: US OB BPP W/FET-MAT S/D CLINICAL INDICATION: NR NST in office Trisomy 21 COMPARISON: FINDINGS: Trans abdominal sonographic images of the uterus were obtained. From her established due date she is 34weeks 5days. The following parameters are obtained: Single viable intrauterine gestation. BREECH position. Placenta: Anteriorplacenta grade 2. There is average amount fluid. Amniotic fluid index is 19.3 cm. The cervix appears satisfactory. Closed and measuring 3.0 cm in length. Average ultrasound age is Average 37weeks 5days Estimated due date by ultrasound is 11/20/2022. Estimated weight is 3182 grams, 7 lb 0 oz. 98percentile. heart rate: 136bpm bpm. BPD: 40 weeks 1 day HC: 39 weeks 0 days AC: 38 weeks 1 day FL: 33 weeks 4 days HC/AC: 0.99 Cephalic index: FL/BPD: 0.66 FL/AC: 0.19 Amniotic fluid index: 19.33cm Qualitative AFV: 2 breathing movements: 2 Gross body movements: 2 Tone: 2 Biophysical profile score: 8 Doppler evaluation of the umbilical artery: SD ratio: 3.82 Resistive index: 0.74 HC/AC is 0.99 FL/BPD is 0.66 FL/AC is 0.19 Limited anatomy shows four-chamber heart view, normal appearing kidneys, diaphragm, bladder, there continues to be significant hydrocephalus and distorted brain anatomy. IMPRESSION: 1. Viable fetus in the breech presentation with an anterior placenta grade 2. 2. Fluid is within normal limits. 3. Biophysical profile is 8/8 with good breathing movement seen. 4. There continues to be significant hydrocephalus in the brain. 5. The fetus has shown accelerated growth with the AC over 3 weeks ahead. The fetus is 98 percentile in growth. Dictated by: Scott Maldonado MD 11/05/2022 11:26 Scott Maldonado MD in [place] 11/05/2022 11:26
[2022-11-04 13:23] VITALS: BMI 49.1
== END 2022-11-04 15:59 | disposition home or self-care (01) ==
LOC: OBOUT 12:03 → OB 12:03
PROVIDERS: PCP Internal Medicine Adolescent Medicine; Visit Provider Obstetrics & Gynecology
DX: O26.893 Other specified pregnancy related conditions, third trimester (principal); Z3A.34 34 weeks gestation of pregnancy
CPT/HCPCS: 59025; 76811; 76819; 76820; 96365; G0463